=== PATIENT | male | born 1940 | race African-American/Black ===

== ENCOUNTER 2019-07-24 12:30 | Inpatient (IN) | payer OTHER ==
[~2019-07-24] VITALS: Ht 177.8 cm; Wt 79.4 kg
[~2019-07-24 12:30] MED LIST: ALPHAGAN P10 ML OP; FLOVENT HFA13 GM IH; HYDROCHLOROTHIAZIDE PO; LEVAQUIN500 MG PO; LISINOPRIL PO; MYSOLINE250 M1 PO; OMEPRAZOLE40 MG PO; PROAIR HFA8.5 G1; PROAIR HFA8.5 G1 IH; SYMBICORT 16010.2 GM INH; TYLENOL WITH C1 EACH PO; Z.0.FLOMAX0.4 MG PO; Z.0.LATANOPROST2.5 M OP; Z.0.LUMIGAN2.5 M1 OP; Z.2.DOXAZOSIN MESYLA PO; [UNRECOGNIZED DRUG - OTHER] OP
--- OUTSIDE RECORDS SUMMARY | 2019-07-24 12:34 | XMS REPORT ---
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 Allergies, Adverse Reactions, Alerts This patient has no known allergies or adverse reactions. Medications This patient has no known medications. Results Test Description Test Time Test Comments Text Results Atomic Results Result Comments CHEST 2 VIEWS 2019-06-09 16:32:00 [place] [address] Patient Name: RABIA GOMES MR #: [id number] : 1940 Age/Sex: 78/M Req #: [id number] Adm Physician: Ordered by: ANEESH LAGUERRE DO Report #: [id number] Location: ER Room/Bed: Procedure: [id number] DX/CHEST 2 VIEWS Exam Date: 06/09/19 Exam Time: 1545 REPORT STATUS: Signed EXAMINATION: CHEST 2 VIEWS INDICATION: Cough CO MPARISON: None FINDINGS: LINES/TUBES:Left chest pacer. LUNGS:The lungs are well-inflated. No focal consolidation or pulmonary edema. PLEURA:No pleural effusion or pneumothorax. MEDIASTINUM:The cardiomediastinal silhouette appears normal in size and shape. Atherosclerotic calcifications of the tortuous thoracic aorta. BONES/SOFT TISSUES:No acute osseous injury. ABDOMEN:No free air under the diaphragm. IMPRESSION: No focal pneumonia or pulmonary edema. Signed by: Lynn Bravo MD on 06/09/2019 4:33 PM Dictated By: LYNN BRAVO MD [id number] Transcribed By: ESTRADA on 06/09/19 1633 COPY TO: ANEESH LAGUERRE DO
[2019-07-24] MEDS ORDERED: SODIUM CHLORIDE 0.9% 1000ML 1,000 ML IV SCH (12:42)
[2019-07-24] MEDS ORDERED: IPRATROPIUM BROMIDE 0.02% 2.5 ML NEB NEB STA (12:42)
[2019-07-24] MEDS ORDERED: ALBUTEROL SULF 0.083% NEB SOLN 3 ML NEB NEB STA (12:42)
[2019-07-24] MEDS ORDERED: SODIUM CHLORIDE FLUSH 10 ML SYR INJ PRN (12:45)
[2019-07-24] MEDS ORDERED: ONDANSETRON HCL INJ 2MG/ML 2ML 2 MG/ML VIAL IV PRN (12:45)
[2019-07-24 12:57] LABS: BASOPHILS # (AUTO) 0.1 (0.0-0.1); BASOPHILS % 0.7 % (0.0-1.0); EOSINOPHILS # (AUTO) 0.6 (0.0-0.4); EOSINOPHILS % 5.3 % (0.0-6.0); HEMATOCRIT 50.3 % (38.2-49.6); HEMOGLOBIN 15.7 g/dL (14.0-18.0); LYMPHOCYTES # (AUTO) 2.3 (1.0-3.2); LYMPHOCYTES % 21.4 % (18.0-39.1); MEAN CORPUSCULAR HEMOGLOBIN 28.7 pg (28-32); MEAN CORPUSCULAR HGB CONC 31.2 g/dL (31-35); MONOCYTES # (AUTO) 0.9 (0.2-0.8); MONOCYTES % 8.8 % (4.4-11.3); NEUTROPHILS # (AUTO) 6.8 (2.1-6.9); NEUTROPHILS % 63.4 % (38.7-80.0); PLATELET COUNT 245 x10e3/uL (140-360); RED BLOOD COUNT 5.47 x10e6/uL (4.3-5.7); RED CELL DISTRIBUTION WIDTH 14.1 % (11.7-14.4)
[2019-07-24] MEDS ORDERED: LEVOFLOXACIN 750MG/D5W 150ML 150 ML IV ONE (13:00)
[2019-07-24] MEDS ORDERED: FAMOTIDINE 20 MG/2 ML VIAL IV ONE (13:00)
--- NOTE | 2019-07-24 13:05 | NUR ---
R.T. AT BEDSIDE ADMINISTERING BREATHING TX
[2019-07-24 13:24] LABS: ALANINE AMINOTRANSFERASE 28 IU/L (0-55); ALBUMIN 3.7 g/dL (3.5-5.0); ALBUMIN/GLOBULIN RATIO 1.1 (0.8-2.0); ALKALINE PHOSPHATASE 71 IU/L (40-150); ANION GAP 14.6 mmol/L (8-16); BLOOD UREA NITROGEN 17 mg/dL (7-26); BUN/CREATININE RATIO 15 (6-25); CALCIUM 9.6 mg/dL (8.4-10.2); CARBON DIOXIDE 28 mmol/L (22-29); CHLORIDE 98 mmol/L (98-107); CREATINE KINASE 133 IU/L (30-200); CREATININE, SERUM 1.17 mg/dL (0.72-1.25); EST GLOMERULAR FILTRATION RATE > 60 ML/MIN (60-); GLUCOSE 158 mg/dL (74-118); POTASSIUM 4.6 mmol/L (3.5-5.1); SODIUM 136 mmol/L (136-145)
--- NOTE | 2019-07-24 13:24 | Diagnostic Imaging Report ---
EXAMINATION: CHEST SINGLE (PORTABLE) INDICATION: Shortness of breath. COMPARISON: 06/09/2019. FINDINGS: LINES/TUBES:Dual-lead left-sided cardiac pacemaker again observed. LUNGS:The lungs are well-inflated. Mild prominence of the pulmonary vasculature with redistribution may reflect mild congestion. No focal consolidation or pulmonary edema. PLEURA:No pleural effusion or pneumothorax. MEDIASTINUM:The cardiomediastinal silhouette appears normal in size and shape. Atherosclerotic calcifications of the tortuous thoracic aorta. BONES/SOFT TISSUES:No acute osseous injury. ABDOMEN:No free air under the diaphragm. IMPRESSION: Mild central pulmonary venous congestion. Signed by: Dr. Estevan Watson M.D. on 07/24/2019 1:22 PM
[2019-07-24 13:29] LABS: ABG PCO2 55 mmHg (41-51); ABG PH 7.31 (7.31-7.41); ABG PO2 84 mmHg (80-105)
[2019-07-24 13:30] LABS: ABG HCO3 28 mmol/L (23-28)
[2019-07-24] MEDS ORDERED: METHYLPREDNISOLONE SOD SUCC 125 MG/2ML VIAL IV ONE (13:30)
[2019-07-24] MEDS ORDERED: CEFTRIAXONE SOD 1 GM VIAL IV SCH (14:15)
[2019-07-24] MEDS: ALBUTEROL/IPRATROPIUM 3 ML NEB NEB SCH ×3 (14:57→23:50)
[2019-07-24] MEDS ORDERED: ALBUTEROL SULFATE HFA 8GM INHALATION AEROSOL INH PRN (15:00)
[2019-07-24] MEDS ORDERED: ZOLPIDEM TARTRATE 5 MG TAB PO PRN (15:15)
[2019-07-24] MEDS: CEFTRIAXONE SOD 1 GM/NS 50 ML 50 ML IV SCH (16:00)
[2019-07-24] MEDS: AZITHROMYCIN 500MG/NS 250 ML 250 ML IV SCH (16:36)
--- NOTE | 2019-07-24 19:15 | NUR ---
rec;d bedside report from luis manuel gonzalez
[2019-07-24] MEDS: BUDESONIDE/FORMOTEROL 160/4.5MCG INHALER INH SCH (20:30)
[2019-07-24] MEDS: METHYLPREDNISOLONE SOD SUCC 40 MG/ML VIAL 1ML IV SCH (21:16)
--- NOTE | 2019-07-24 21:53 | Consultation ---
DATE OF CONSULTATION: 07/24/2019 Pulmonary Critical Care consultation CHIEF COMPLAINT: Worsening dyspnea and cough. HISTORY OF PRESENT ILLNESS: The patient is a 78-year-old man. He has a history of COPD. He uses Symbicort twice a day at home as well as albuterol as needed. He has a history of a prior pacemaker for sinus bradycardia. Over the past several days, he has noticed worsening dyspnea and cough. His cough has been productive of greenish phlegm. He denies any fevers. He has not had chest pain. PAST SURGICAL HISTORY: Status post pacemaker placement. PAST MEDICAL HISTORY: 1. COPD. 2. Benign prostatic hypertrophy. 3. History of sick sinus node syndrome, requiring pacemaker placement. SOCIAL HISTORY: The patient quit smoking in 1999. He is not an active drinker. FAMILY HISTORY: Family history is noncontributory. ALLERGIES: THE PATIENT IS ALLERGIC TO SULFA. REVIEW OF SYSTEMS: The patient is afebrile. He has no headache. He has some mild nasal congestion. He is not having a sore throat. He has no neck pain. He does not complain of chest pain. He does have dyspnea and wheezing. He has cough productive of discolored phlegm. He has no abdominal pain. He has no nausea or vomiting. He has no leg edema. He has no focal neurological abnormalities. PHYSICAL EXAMINATION: VITAL SIGNS: The patient is afebrile. The blood pressure is 136/74 and the saturation is 100%. HEENT: Shows no facial swelling or erythema. LYMPHATIC: Shows no submandibular, cervical, or supraclavicular adenopathy. NECK: Shows no JVD or thyromegaly. There is no nuchal rigidity. CARDIAC: Reveals regular rate and rhythm with normal S1, S2. LUNGS: Auscultation of lungs reveals a prolonged expiratory phase bilaterally. There is mild wheezing. ABDOMEN: Soft, nontender. There is no rebound or guarding. EXTREMITIES: Show no leg edema or calf tenderness. There is no cyanosis or clubbing. Chest x-ray shows no active disease. LABORATORY DATA: CBC is within normal limits. Creatinine is mildly elevated at 1.17. The other electrolytes are within normal limits. IMPRESSION: 1. Chronic obstructive pulmonary disease with acute exacerbation. 2. History of prior pacemaker for bradycardia. PLAN: The patient will receive: 1. Solu-Medrol. 2. IV antibiotics. 3. Bronchodilators. 4. Repeat blood tests tomorrow. 5. Nasal swab for influenza. MD GABE Rivera/JEEVAN /[id number]
[2019-07-24] MEDS ORDERED: METHYLPREDNISOLONE SOD SUCC 40 MG/ML VIAL 1ML IV SCH (22:00)
--- NOTE | 2019-07-24 22:23 | NUR ---
CALL PLACED TO DR. AIDEN VIRAMONTES FOR THIS PATEINT
[2019-07-24] MEDS: BRIMONIDINE TARTRATE 0.15% OPTH DRPS 10ML BTL OP SCH (22:28)
[2019-07-24] MEDS: BIMATOPROST(OPTH) 2.5 ML BOTTLE OP SCH (22:29)
[2019-07-24] MEDS: DORZOLAMIDE HCL (OPTH) 10 ML BOTTLE OP SCH (22:29)
[2019-07-25] VITALS (10 sets, daily range): BP systolic 120–145; BP diastolic 59–91
--- NOTE | 2019-07-25 00:10 | NUR ---
patient came from ER awake alert oriented, no acute distress noted. able to move from wheel chair to bed without difficulty. SOB noted with exertions. vitals checked, will continue to monitor.
[2019-07-25] MEDS: ALBUTEROL/IPRATROPIUM 3 ML NEB NEB SCH ×6 (02:55→23:02)
[2019-07-25 06:08] LABS: BASOPHILS % 0.2 % (0.0-1.0); HEMATOCRIT 46.3 % (38.2-49.6); HEMOGLOBIN 14.5 g/dL (14.0-18.0); LYMPHOCYTES # (AUTO) 1.8 (1.0-3.2); LYMPHOCYTES % 19.9 % (18.0-39.1); MEAN CORPUSCULAR HEMOGLOBIN 28.8 pg (28-32); MEAN CORPUSCULAR HGB CONC 31.3 g/dL (31-35); MEAN CORPUSCULAR VOLUME 91.9 fL (81-99); MONOCYTES # (AUTO) 0.7 (0.2-0.8); MONOCYTES % 7.2 % (4.4-11.3); NEUTROPHILS # (AUTO) 6.5 (2.1-6.9); NEUTROPHILS % 72.1 % (38.7-80.0); PLATELET COUNT 242 x10e3/uL (140-360); RED BLOOD COUNT 5.04 x10e6/uL (4.3-5.7); RED CELL DISTRIBUTION WIDTH 14.1 % (11.7-14.4)
[2019-07-25 06:28] LABS: ANION GAP 13.2 mmol/L (8-16); BLOOD UREA NITROGEN 17 mg/dL (7-26); BUN/CREATININE RATIO 15 (6-25); CALCIUM 9.5 mg/dL (8.4-10.2); CARBON DIOXIDE 29 mmol/L (22-29); CHLORIDE 101 mmol/L (98-107); CREATININE, SERUM 1.13 mg/dL (0.72-1.25); EST GLOMERULAR FILTRATION RATE > 60 ML/MIN (60-); GLUCOSE 122 mg/dL (74-118); SODIUM 138 mmol/L (136-145)
[2019-07-25 06:40] LABS: POTASSIUM 5.2 mmol/L (3.5-5.1)
[2019-07-25 07:06] LABS: LYMPHOCYTES % (MANUAL) 18 % (19-48); MONOCYTES % (MANUAL) 5 % (3.4-9.0); NEUTROPHILS % (MANUAL) 77 % (40-74)
[2019-07-25 07:07] LABS: PLATELET ESTIMATE ADEQUATE; PLATELET MORPHOLOGY COMMENT NORMAL; RBC MORPHOLOGY COMMENT NORMAL
[2019-07-25] MEDS: PANTOPRAZOLE SOD 40 MG TABEC PO SCH (08:08)
[2019-07-25] MEDS: TAMSULOSIN HCL 0.4 MG CAP PO SCH (08:08)
[2019-07-25] MEDS: METHYLPREDNISOLONE SOD SUCC 40 MG/ML VIAL 1ML IV SCH ×3 (08:08→20:37)
[2019-07-25] MEDS: BIMATOPROST(OPTH) 2.5 ML BOTTLE OP SCH (08:16)
[2019-07-25] MEDS: BRIMONIDINE TARTRATE 0.15% OPTH DRPS 10ML BTL OP SCH (08:16)
[2019-07-25] MEDS: DORZOLAMIDE HCL (OPTH) 10 ML BOTTLE OP SCH (08:17)
[2019-07-25] MEDS: PRIMIDONE 250 MG TABLET PO SCH ×3 (09:00→16:08)
[2019-07-25] MEDS ORDERED: FUROSEMIDE INJ 10 MG/ML 4 ML VIAL IV ONE (10:15)
[2019-07-25] MEDS: BUDESONIDE/FORMOTEROL 160/4.5MCG INHALER INH SCH ×2 (11:33→19:33)
--- NOTE | 2019-07-25 12:54 | Diagnostic Imaging Report ---
EXAM: CT Chest WITHOUT intravenous contrast 07/25/2019 9:22 AM INDICATION: Shortness of breath COMPARISON: Chest radiograph 07/24/2019 TECHNIQUE: Chest was scanned utilizing a multidetector helical scanner from the lung apex through the level of the adrenal glands without administration of IV contrast. Coronal and sagittal reformations were obtained. Routine protocol was performed. IV CONTRAST: None RADIATION DOSE: Total DLP: 417.0 mGy*cm. Dose modulation, iterative reconstruction, and/or weight based adjustment of the mA/kV was utilized to reduce the radiation dose to as low as reasonably achievable. COMPLICATIONS: None FINDINGS: LINES/ TUBES: Left chest pacer. LUNGS AND AIRWAYS: The central airways are patent. Mild diffuse bronchial wall thickening. No focal consolidation or pulmonary edema. Mild bibasilar dependent subsegmental atelectasis. No suspicious pulmonary nodules. PLEURA: The pleural spaces are clear. HEART AND MEDIASTINUM: The thyroid gland is normal. No mediastinal, hilar or axillary lymphadenopathy. The heart is normal in size.. There is no pericardial effusion. Atherosclerotic calcifications involve the aorta, coronary arteries, and proximal great vessels. The main pulmonary artery is mildly enlarged, measuring up to 3.9 cm. UPPER ABDOMEN: No acute findings. BONES: The visualized bony thorax is within normal limits. SOFT TISSUES: Unremarkable. IMPRESSION: Hyperinflated lungs. No focal pneumonia or pulmonary edema. Mild diffuse body wall thickening can be seen in the setting of bronchitis. Old main pulmonary artery enlargement to 3.9 cm can be seen in the setting of pulmonary arterial hypertension. Signed by: Brock Bravo MD on 07/25/2019 12:51 PM
[2019-07-25] MEDS ORDERED: FUROSEMIDE INJ 10 MG/ML 4 ML VIAL ONE (13:17)
[2019-07-25] MEDS: CEFTRIAXONE SOD 1 GM/NS 50 ML 50 ML IV SCH (15:16)
[2019-07-25] MEDS ORDERED: SODIUM CHLORIDE 0.9% 250ML 250 ML ONE (15:43)
[2019-07-25] MEDS: AZITHROMYCIN 500MG/NS 250 ML 250 ML IV SCH (15:55)
--- NOTE | 2019-07-25 16:03 | History and Physical ---
The patient on observation. CHIEF COMPLAINT: Shortness of breath and chest pain. PRIMARY CARE PHYSICIAN: Dr. Prince Curtis. CONSULTANTS: 1. Dr. Carlos Sinclair. 2. Dr. Dandre Sinclair. HISTORY OF PRESENT ILLNESS: This is a 78-year-old male with permanent pacemaker in left chest area. Last pacemaker change was approximately 4 or 5 years ago, but he had a pacemaker for many years, came in with increasing shortness of breath and chest pain. The patient is otherwise stable. He was having some wheezing. He uses Symbicort and albuterol as needed. The patient is stable. He did have some greenish sputum. The patient has imaging tests done and chest x-ray shown mild central pulmonary venous congestion. The patient is otherwise stable. He just had an echocardiogram done. PAST MEDICAL HISTORY: COPD, hypertension, reflux history, and history of sick sinus syndrome, status post permanent pacemaker. SOCIAL HISTORY: The patient was a smoker, quit in 1999. He does not drink alcohol and currently no recreational drug use. He quit per the patient crack cocaine over 20 years ago. ALLERGIES: TO SULFA. HOME MEDICATIONS: List is reviewed. REVIEW OF SYSTEMS: Shows some shortness of breath and wheezing, but no significant chest pain or abdominal pain or any focal deficits. PHYSICAL EXAMINATION: VITAL SIGNS: Temperature is 98, blood pressure 144/82, pulse rate 77, and respirations 18. GENERAL: The patient is not in acute distress. He is awake. HEENT: Normocephalic and atraumatic. He is anicteric. NECK: Supple grossly. PULMONARY: Diminished breath sounds bilateral with rhonchi. CARDIOVASCULAR: S1 and S2. Regular rate and rhythm. Left upper chest, permanent pacemaker. EXTREMITIES: No cyanosis or edema. NEUROLOGIC: No gross focal deficit. LABORATORY DATA: Sodium is 138, potassium 5.2, chloride 101, bicarb 29, BUN 17, creatinine 1.2, and glucose is 122. WBC is 9.1, hemoglobin 14.5, hematocrit 46, and platelets is 242. IMPRESSION: 1. Acute exacerbation of chronic obstructive pulmonary disease. 2. History of sick sinus syndrome with permanent pacemaker. 3. Chest pain, atypical, most likely from chronic obstructive pulmonary disease. PLAN: CT chest without contrast. Echocardiogram. Resume home medication nebulizer treatment. Cut back on the steroids. Consultation with Dr. Dandre Sinclair for cardiac workup. The patient is otherwise stable at this time. MD EDNA Umaña/JEEVAN /[id number]
--- NOTE | 2019-07-25 18:43 | Progress Note ---
DATE: 07/25/2019 SUBJECTIVE: The patient reports continued dyspnea. He has minimal cough. He is not complaining of chest pain. PHYSICAL EXAMINATION: VITAL SIGNS: The patient is afebrile. The blood pressure is 120/60 and saturation is 97% on 3 L. HEENT: Shows no facial swelling or erythema. CARDIAC: Reveals regular rate and rhythm with normal S1 and S2. LUNGS: Auscultation of lungs reveals prolonged expiratory phase bilaterally. There is no wheezing. ABDOMEN: Soft and nontender. There is no rebound or guarding. EXTREMITIES: Shows no leg edema or calf tenderness. IMPRESSION: 1. Chronic obstructive pulmonary disease with acute exacerbation. 2. Atrial fibrillation. 3. Prior pacemaker placement. PLAN: 1. Continue Solu-Medrol. 2. Continue IV antibiotics. 3. Continue bronchodilators and oxygen. 4. Await completion of Cardiology evaluation. Carlos Sinclair MD [facility]/JEEVAN /[id number]
[2019-07-26] VITALS (11 sets, daily range): BP systolic 102–134; BP diastolic 69–84
[2019-07-26] MEDS: ALBUTEROL/IPRATROPIUM 3 ML NEB NEB SCH ×6 (00:15→19:50)
--- NOTE | 2019-07-26 00:40 | Consultation ---
DATE OF CONSULTATION: 07/25/2019 Cardiology Consult HISTORY OF PRESENT ILLNESS: Ishmael Olson is a 78-year-old male with a pacemaker in the left chest. Last pacemaker change was approximately five years ago that he had a pacemaker for many years, admitted complaining of shortness of breath and chest pain and accompanied with some wheezing. The patient has a primary history of COPD, hypertension, and history of sick sinus syndrome with a pacemaker placed. The patient also reports of having some greenish sputum, moderate amount. The patient also reports his chest pain is intermittently come and go for almost five years now, but he denies any dizziness or any dyspnea. PAST MEDICAL HISTORY: COPD, hypertension, GERD, and sick sinus syndrome. SOCIAL HISTORY: The patient is a quit smoking in 1999 and no alcohol or recreational drug use, but he had a history of cocaine use for over 20 years. ALLERGIES: SULFA. HOME MEDICATIONS: He takes: 1. Lisinopril/hydrochlorothiazide. 2. Fluticasone. 3. He takes budesonide. 4. Formoterol fumarate. 5. Albuterol. 6. Brimonidine tartrate. 7. Omeprazole. 8. Primidone. PHYSICAL EXAMINATION: VITALS SIGN: Right now 120/59 blood pressure, pulse is 77, temperature is 96.4, respiratory rate is 17, pulse ox is 97 on 3 L nasal cannula. GENERAL APPEARANCE: Well-developed, well-nourished, in no acute distress. HEENT: Head is normocephalic and atraumatic. Eyes, pupils equally round and reactive to light and accommodation. Sclerae nonicteric. Ears normal. Oral cavity; mucosa is moist. Throat is clear. NECK AND THYROID: Neck is supple. Full range of motion. No cervical lymphadenopathy. SKIN: Warm and dry. No suspicious lesions. HEART: Regular rate and rhythm, S1 and S2 normal. No murmurs. LUNGS: Diminished all throughout with some expiratory wheezing. ABDOMEN: Soft, nontender, nondistended. Bowel sounds are present. EXTREMITIES: No edema. No cyanosis. NEUROLOGIC: Nonfocal. Motor strength is normal in upper and lower extremities. Sensory exam is intact. RECOMMENDATION AND PLAN: The patient is a 78-year-old male with chronic obstructive pulmonary disease exacerbation with complaining of chest pain. Initial cardiac enzymes are negative of any ischemia. Telemetry, he is AV paced on the monitor. No signs. No evidence of ischemia. 1. We will do monitor on telemetry. 2. Echocardiogram. 3. Pacemaker interrogation or ICD interrogation. 4. Further recommendations will follow according to patient's clinical course. Thank you for this consultation. We will continue to follow. Dictated by Chelsea Galeana NP MD GIANNA Vegas/JEEVAN /[id number]
[2019-07-26 05:12] LABS: BASOPHILS % 0.3 % (0.0-1.0); HEMATOCRIT 44.6 % (38.2-49.6); HEMOGLOBIN 14.3 g/dL (14.0-18.0); LYMPHOCYTES # (AUTO) 2.3 (1.0-3.2); LYMPHOCYTES % 22.9 % (18.0-39.1); MEAN CORPUSCULAR HGB CONC 32.1 g/dL (31-35); MEAN CORPUSCULAR VOLUME 90.5 fL (81-99); MONOCYTES % 9.4 % (4.4-11.3); NEUTROPHILS # (AUTO) 6.8 (2.1-6.9); NEUTROPHILS % 67.1 % (38.7-80.0); PLATELET COUNT 238 x10e3/uL (140-360); RED BLOOD COUNT 4.93 x10e6/uL (4.3-5.7); RED CELL DISTRIBUTION WIDTH 13.9 % (11.7-14.4)
[2019-07-26 05:29] LABS: ANION GAP 11.6 mmol/L (8-16); BLOOD UREA NITROGEN 21 mg/dL (7-26); BUN/CREATININE RATIO 20 (6-25); CALCIUM 9.3 mg/dL (8.4-10.2); CARBON DIOXIDE 30 mmol/L (22-29); CHLORIDE 103 mmol/L (98-107); CREATININE, SERUM 1.03 mg/dL (0.72-1.25); EST GLOMERULAR FILTRATION RATE > 60 ML/MIN (60-); GLUCOSE 137 mg/dL (74-118); POTASSIUM 4.6 mmol/L (3.5-5.1); SODIUM 140 mmol/L (136-145)
[2019-07-26] MEDS: METHYLPREDNISOLONE SOD SUCC 40 MG/ML VIAL 1ML IV SCH ×3 (06:14→21:43)
[2019-07-26] MEDS: BUDESONIDE/FORMOTEROL 160/4.5MCG INHALER INH SCH ×2 (07:00→19:00)
[2019-07-26] MEDS: BIMATOPROST(OPTH) 2.5 ML BOTTLE OP SCH (08:38)
[2019-07-26] MEDS: PRIMIDONE 250 MG TABLET PO SCH ×2 (08:38→16:43)
[2019-07-26] MEDS: PANTOPRAZOLE SOD 40 MG TABEC PO SCH (08:38)
[2019-07-26] MEDS: TAMSULOSIN HCL 0.4 MG CAP PO SCH (08:38)
[2019-07-26] MEDS ORDERED: ONDANSETRON HCL 4 MG ORAL DISINTEGRATING TAB PO PRN (09:30)
--- NOTE | 2019-07-26 10:26 | Progress Note ---
DATE: 07/26/2019 SUBJECTIVE: The patient still has some wheezing and coughing. He received a breathing treatment with some improvement. PHYSICAL EXAMINATION: VITAL SIGNS: The patient is afebrile. The vital signs are stable. HEENT: Shows no facial swelling or erythema. CARDIAC: Reveals a regular rate and rhythm with normal S1 and S2. LUNGS: Auscultation of lungs reveals a prolonged expiratory phase bilaterally. There is no wheezing. ABDOMEN: Soft, nontender. There is no rebound or guarding. EXTREMITIES: Show no leg edema or calf tenderness. There is no cyanosis or clubbing. SKIN: Shows no rashes. NEUROLOGIC: Shows no focal abnormalities. IMPRESSION: 1. Chronic obstructive pulmonary disease with acute exacerbation. 2. Atrial fibrillation. 3. Prior pacemaker placement. PLAN: 1. Continue Solu-Medrol. 2. Continue bronchodilators. 3. Await completion of echocardiogram and Cardiology evaluation. 4. Wean oxygen as tolerated. Carlos Sinclair MD [facility]/JEEVAN /[id number]
[2019-07-26] MEDS: CEFTRIAXONE SOD 1 GM/NS 50 ML 50 ML IV SCH (14:39)
[2019-07-26] MEDS ORDERED: MAGNESIUM HYDROXIDE 30 ML UDC PO PRN (15:45)
[2019-07-26] MEDS ORDERED: BISACODYL 10 MG SUPP PR PRN (15:45)
[2019-07-26] MEDS ORDERED: SENNOSIDES 8.6 MG TAB PO PRN (15:45)
[2019-07-26] MEDS: AZITHROMYCIN 500MG/NS 250 ML 250 ML IV SCH (15:56)
[2019-07-26] MEDS: ENOXAPARIN SOD INJ 40 MG/0.4 ML SYR SC SCH (16:43)
--- NOTE | 2019-07-26 19:00 | NUR ---
Bed side report received, patient is stbale, on o2 3l, patient is alert and oriented x 4. safety and fall precautions maintained at this time.
[2019-07-27] VITALS (7 sets, daily range): BP systolic 115–154; BP diastolic 66–92
--- NOTE | 2019-07-27 | NUR ---
patient rounded and vitals checked, vitals stable, patient is sleeping at this time.Woke up and had 60 mls of urine output.
--- NOTE | 2019-07-27 02:53 | NUR ---
[employer] was called for patient. Patient was lethargic and non responsive to verbal command, however vitals were within normal range. [employer] arrived and work up was started, labs were collected, ekg was done and patient was placed on bipap. sepsis was ruled out, patient was stabilized on the bipap.
[2019-07-27] MEDS: ALBUTEROL/IPRATROPIUM 3 ML NEB NEB SCH ×6 (03:02→22:15)
[2019-07-27] MEDS ORDERED: MAGNESIUM SULFATE 2GM/50ML 50 ML IV ONE (03:04)
[2019-07-27] MEDS ORDERED: ALBUTEROL/IPRATROPIUM 3 ML NEB NEB ONE ×2 (03:15)
[2019-07-27] MEDS ORDERED: ALBUTEROL SULF 0.083% NEB SOLN 3 ML NEB ONE (03:20)
[2019-07-27 03:21] LABS: ABG PH 7.08 (7.31-7.41)
[2019-07-27 03:22] LABS: ABG HCO3 30 mmol/L (23-28); ABG PCO2 102 mmHg (41-51); ABG PO2 61 mmHg (80-105)
[2019-07-27 03:29] LABS: BASOPHILS % 0.2 % (0.0-1.0); HEMATOCRIT 50.4 % (38.2-49.6); HEMOGLOBIN 15.4 g/dL (14.0-18.0); LYMPHOCYTES # (AUTO) 4.9 (1.0-3.2); LYMPHOCYTES % 35.7 % (18.0-39.1); MEAN CORPUSCULAR HEMOGLOBIN 28.8 pg (28-32); MEAN CORPUSCULAR HGB CONC 30.6 g/dL (31-35); MONOCYTES # (AUTO) 0.8 (0.2-0.8); MONOCYTES % 5.4 % (4.4-11.3); NEUTROPHILS % 58.2 % (38.7-80.0); PLATELET COUNT 298 x10e3/uL (140-360); RED BLOOD COUNT 5.35 x10e6/uL (4.3-5.7); RED CELL DISTRIBUTION WIDTH 14.1 % (11.7-14.4)
[2019-07-27 03:47] LABS: ALANINE AMINOTRANSFERASE 54 IU/L (0-55); ALBUMIN 3.5 g/dL (3.5-5.0); ALKALINE PHOSPHATASE 61 IU/L (40-150); ANION GAP 13.1 mmol/L (8-16); BLOOD UREA NITROGEN 19 mg/dL (7-26); BUN/CREATININE RATIO 16 (6-25); CALCIUM 9.8 mg/dL (8.4-10.2); CARBON DIOXIDE 27 mmol/L (22-29); CHLORIDE 102 mmol/L (98-107); CREATINE KINASE 95 IU/L (30-200); CREATININE, SERUM 1.21 mg/dL (0.72-1.25); EST GLOMERULAR FILTRATION RATE > 60 ML/MIN (60-); GLUCOSE 198 mg/dL (74-118); POTASSIUM 5.1 mmol/L (3.5-5.1); SODIUM 137 mmol/L (136-145)
[2019-07-27 03:48] LABS: MEAN CORPUSCULAR VOLUME 94.2 fL (81-99)
--- NOTE | 2019-07-27 03:57 | Diagnostic Imaging Report ---
EXAMINATION: CHEST SINGLE (PORTABLE) COMPARISON: CT chest 07/25/2019 INDICATION: COPD, shortness of breath ^Neuro DISCUSSION: Frontal view of the chest obtained at 0320 hours. HEART AND MEDIASTINUM: The heart is normal in size. The aorta is mildly tortuous LINES: Dual-lead pacemaker wires terminate in the right atrium and right ventricle. LUNGS: Diffuse hyperinflation. No mass, infiltrate, or interstitial edema. PLEURA: No pleural effusion or pneumothorax. BONES AND SOFT TISSUES: No focal osseous lesion. The soft tissues are normal. IMPRESSION: Stable pulmonary hyperinflation consistent with history of COPD. No acute cardiopulmonary process. Signed by: Dr. Tang Cerna MD on 07/27/2019 3:55 AM
[2019-07-27] MEDS ORDERED: ALBUTEROL SULF 0.083% NEB SOLN 3 ML NEB NEB STA ×2 (04:21→04:50)
[2019-07-27 04:43] LABS: ABG HCO3 29 mmol/L (23-28); ABG PCO2 55 mmHg (41-51); ABG PH 7.33 (7.31-7.41); ABG PO2 103 mmHg (80-105)
[2019-07-27 04:57] LABS: BASOPHILS % 0.1 % (0.0-1.0); EOSINOPHILS % 0.1 % (0.0-6.0); HEMOGLOBIN 14.6 g/dL (14.0-18.0); LYMPHOCYTES # (AUTO) 1.2 (1.0-3.2); LYMPHOCYTES % 13.1 % (18.0-39.1); MEAN CORPUSCULAR HEMOGLOBIN 28.7 pg (28-32); MEAN CORPUSCULAR HGB CONC 31.1 g/dL (31-35); MEAN CORPUSCULAR VOLUME 92.5 fL (81-99); MONOCYTES # (AUTO) 0.6 (0.2-0.8); NEUTROPHILS # (AUTO) 7.5 (2.1-6.9); NEUTROPHILS % 80.4 % (38.7-80.0); PLATELET COUNT 240 x10e3/uL (140-360); RED BLOOD COUNT 5.08 x10e6/uL (4.3-5.7); RED CELL DISTRIBUTION WIDTH 13.9 % (11.7-14.4)
[2019-07-27 05:18] LABS: ALANINE AMINOTRANSFERASE 91 IU/L (0-55); ALBUMIN 3.3 g/dL (3.5-5.0); ALBUMIN/GLOBULIN RATIO 1.1 (0.8-2.0); ALKALINE PHOSPHATASE 71 IU/L (40-150); ANION GAP 11.8 mmol/L (8-16); BLOOD UREA NITROGEN 20 mg/dL (7-26); BUN/CREATININE RATIO 18 (6-25); CALCIUM 9.6 mg/dL (8.4-10.2); CARBON DIOXIDE 30 mmol/L (22-29); CHLORIDE 101 mmol/L (98-107); CREATINE KINASE 81 IU/L (30-200); CREATININE, SERUM 1.09 mg/dL (0.72-1.25); EST GLOMERULAR FILTRATION RATE > 60 ML/MIN (60-); GLUCOSE 169 mg/dL (74-118); POTASSIUM 4.8 mmol/L (3.5-5.1); SODIUM 138 mmol/L (136-145)
[2019-07-27] MEDS: METHYLPREDNISOLONE SOD SUCC 40 MG/ML VIAL 1ML IV SCH ×3 (05:51→18:41)
[2019-07-27 05:54] LABS: CLARITY,URINE CLEAR (CLEAR); COLOR,URINE YELLOW (YELLOW); LEUKOCYTE ESTERASE ,URINE NEGATIVE (NEGATIVE); NITRITE,URINE NEGATIVE (NEGATIVE); PROTEIN,URINE DIPSTICK TRACE (NEGATIVE)
[2019-07-27 05:55] LABS: BACTERIA,URINE RARE /HPF; BILIRUBIN,URINE NEGATIVE (NEGATIVE); EPITHELIAL CELLS,URINE FEW /LPF; KETONES,URINE NEGATIVE (NEGATIVE); URINE UROBILINOGEN 0.2 mg/dL (0.2 - 1)
[2019-07-27] MEDS: BUDESONIDE/FORMOTEROL 160/4.5MCG INHALER INH SCH (07:30)
[2019-07-27] MEDS: BIMATOPROST(OPTH) 2.5 ML BOTTLE OP SCH (08:01)
[2019-07-27] MEDS ORDERED: CITRATE OF MAGNESIA 300ML BOTTLE PO ONE (09:15)
--- NOTE | 2019-07-27 10:11 | Progress Note ---
DATE: 07/27/2019 Pulmonary Critical Care Progress Note SUBJECTIVE: The patient became more lethargic last night at 4:00 a.m. and a rapid response was called. The patient was given a breathing treatment and started on BiPAP. He is more awake this morning. He is not complaining of wheezing or difficulty breathing. He does complain of not having a bowel movement. PHYSICAL EXAMINATION: VITAL SIGNS: The patient is afebrile. The blood pressure is 116/81 and the saturation is 99%. CARDIAC: Reveals regular rate and rhythm with normal S1, S2. There are no murmurs or rubs. LUNGS: Auscultation of lungs reveals prolonged expiratory phase. There is no wheezing. ABDOMEN: Soft, nontender. There is no rebound or guarding. EXTREMITIES: Show no leg edema or calf tenderness. There is no cyanosis or clubbing. SKIN: Shows no rashes. NEUROLOGICAL: Shows no focal abnormalities. LABORATORY DATA: Blood gas is 7.33 with CO2 of 55, and O2 of 103 and a bicarbonate of 29. White blood cell count is 9.3 and hemoglobin is 14.6. The platelet count is 240. BUN to creatinine ratio is 20 to 1.09. RADIOGRAPHIC DATA: Chest x-ray shows no acute disease. There is COPD. IMPRESSION: 1. Gfzos-ez-akhdfxr respiratory failure. 2. Chronic obstructive pulmonary disease with acute exacerbation. 3. Atrial fibrillation. 4. Constipation. PLAN: 1. The patient should continue Solu-Medrol along with bronchodilators for now. 2. Arrange for noninvasive ventilator at home. 3. Continue current cardiac regimen. 4. Magnesium citrate for bowel movement. Carlos Sinclair MD [facility]/MODL /[id number]
[2019-07-27] MEDS: BUDESONIDE 0.25 MG/2 ML NEB NEB SCH ×2 (11:25→22:15)
[2019-07-27] MEDS: PRIMIDONE 250 MG TABLET PO SCH ×2 (12:47→18:41)
[2019-07-27] MEDS: ASPIRIN 81 MG CHEW TAB PO SCH (12:47)
[2019-07-27] MEDS: PANTOPRAZOLE SOD 40 MG TABEC PO SCH (12:47)
[2019-07-27] MEDS: TAMSULOSIN HCL 0.4 MG CAP PO SCH (12:47)
[2019-07-27] MEDS ORDERED: CITRATE OF MAGNESIA 300ML BOTTLE ONE (12:54)
[2019-07-27] MEDS: CEFTRIAXONE SOD 1 GM/NS 50 ML 50 ML IV SCH (18:41)
[2019-07-27] MEDS: ENOXAPARIN SOD INJ 40 MG/0.4 ML SYR SC SCH (18:41)
[2019-07-27] MEDS: AZITHROMYCIN 250 MG TAB PO SCH (18:41)
--- NOTE | 2019-07-27 19:20 | NUR ---
Received patient from day nurse, patient is alert and oriented, patient denies concerns at this time, safety and fall precautions maintained as per hospital protocol: bed in lowest position and locked, needed items beside bed and call blackburn placed close to patient. patient son at bed side.
--- NOTE | 2019-07-27 22:00 | NUR ---
patient rounded and stable.
[2019-07-28] VITALS (8 sets, daily range): BP systolic 116–154; BP diastolic 61–88
--- NOTE | 2019-07-28 | NUR ---
patient rounded and stable.
[2019-07-28] MEDS: METHYLPREDNISOLONE SOD SUCC 40 MG/ML VIAL 1ML IV SCH ×4 (02:38→17:11)
[2019-07-28] MEDS: ALBUTEROL/IPRATROPIUM 3 ML NEB NEB SCH ×6 (03:00→23:00)
[2019-07-28] MEDS: BUDESONIDE 0.25 MG/2 ML NEB NEB SCH ×2 (07:00→19:45)
--- NOTE | 2019-07-28 07:00 | NUR ---
Rcvd patient in report this am. Patient is awake in bed at this time. NO s/s of distress noted. O2 sats stable at this time. Patient on O2 at 2L NC.
--- NOTE | 2019-07-28 07:15 | NUR ---
Patient condition throughout the night was stable, patient endorsed to next shift for continuity of care.
[2019-07-28] MEDS: TAMSULOSIN HCL 0.4 MG CAP PO SCH (08:39)
[2019-07-28] MEDS: BIMATOPROST(OPTH) 2.5 ML BOTTLE OP SCH (08:39)
[2019-07-28] MEDS: PRIMIDONE 250 MG TABLET PO SCH ×2 (08:39→16:54)
[2019-07-28] MEDS: PANTOPRAZOLE SOD 40 MG TABEC PO SCH (08:39)
[2019-07-28] MEDS: ASPIRIN 81 MG CHEW TAB PO SCH (08:39)
--- NOTE | 2019-07-28 10:59 | Progress Note ---
DATE: 07/28/2019 SUBJECTIVE: The patient's Solu-Medrol was increased yesterday. He feels better now. He has less dyspnea. He is off BiPAP and on nasal cannula. OBJECTIVE: VITAL SIGNS: The patient is afebrile. The vital signs are stable. HEENT: Shows no facial swelling or erythema. CARDIAC: Reveals regular rate and rhythm with normal S1 and S2. LUNGS: Auscultation of lungs reveals a prolonged expiratory phase. There is some wheezing. ABDOMEN: Soft, nontender. There is no rebound or guarding. EXTREMITIES: Show no leg edema or calf tenderness. There is no cyanosis or clubbing. SKIN: Shows no rashes. NEUROLOGICAL: Shows no focal abnormalities. IMPRESSION: 1. Ibxdj-nn-jtlqnnu respiratory failure. 2. Chronic obstructive pulmonary disease with acute exacerbation. 3. Atrial fibrillation. 4. Constipation. PLAN: 1. Continue Solu-Medrol. 2. Continue oxygen. 3. Continue current cardiac regimen. Carlos Sinclair MD [facility]/MODL /[id number]
[2019-07-28] MEDS: CEFTRIAXONE SOD 1 GM/NS 50 ML 50 ML IV SCH (14:45)
--- NOTE | 2019-07-28 14:46 | NUR ---
Patient resting in bed with no s/s of distress noted. Patient has tolerated his oxygen at 2L NC. No shortness of breath noted. Family at bedside.
[2019-07-28] MEDS: AZITHROMYCIN 250 MG TAB PO SCH (16:54)
[2019-07-28] MEDS: ENOXAPARIN SOD INJ 40 MG/0.4 ML SYR SC SCH (16:54)
--- NOTE | 2019-07-28 20:00 | NUR ---
Report received. Assumed care. Assessment done. See interventions.
[2019-07-29] VITALS (7 sets, daily range): BP systolic 129–157; BP diastolic 77–90
[2019-07-29] MEDS: METHYLPREDNISOLONE SOD SUCC 40 MG/ML VIAL 1ML IV SCH ×4 (00:50→21:09)
[2019-07-29] MEDS: ALBUTEROL/IPRATROPIUM 3 ML NEB NEB SCH ×6 (03:00→23:05)
--- NOTE | 2019-07-29 05:00 | NUR ---
Weaned O2 off.
--- NOTE | 2019-07-29 06:27 | NUR ---
O2 on room air 95%. Alena well.
[2019-07-29] MEDS: BUDESONIDE 0.25 MG/2 ML NEB NEB SCH ×2 (07:18→19:55)
[2019-07-29] MEDS: PANTOPRAZOLE SOD 40 MG TABEC PO SCH (07:49)
[2019-07-29] MEDS: BIMATOPROST(OPTH) 2.5 ML BOTTLE OP SCH (07:57)
[2019-07-29] MEDS: ASPIRIN 81 MG CHEW TAB PO SCH (08:01)
[2019-07-29] MEDS: TAMSULOSIN HCL 0.4 MG CAP PO SCH (08:01)
[2019-07-29] MEDS: PRIMIDONE 250 MG TABLET PO SCH ×2 (08:01→16:10)
--- NOTE | 2019-07-29 09:43 | NUR ---
ORDERS FOR HOME HEALTH AND HOME 02 WILL NEED NEW SAT TESTING (LAST ONE DONE ON 07/26) AWAIT EVAL
--- NOTE | 2019-07-29 13:46 | NUR ---
HOME 02 EVAL DONE PT DOES NOT QUALIFY FOR OXYGEN
[2019-07-29] MEDS: CEFTRIAXONE SOD 1 GM/NS 50 ML 50 ML IV SCH (14:47)
[2019-07-29] MEDS: AZITHROMYCIN 250 MG TAB PO SCH (16:10)
[2019-07-29] MEDS: ENOXAPARIN SOD INJ 40 MG/0.4 ML SYR SC SCH (16:10)
--- NOTE | 2019-07-29 16:13 | NUR ---
SINGED CHOICE FOR [facility]IM HOME HEALTH AND FAXED TO COMPANY. FILED CHOICE IN CHART.
[2019-07-30] VITALS: BP 144/78
--- NOTE | 2019-07-30 00:17 | NUR ---
RECEIVED PATIENT VIA TRANSFER IN HOSPITAL BED. PATIENT TOLERATED TRANSFER WELL. A&OX4. NO PAIN REPORTED. NO DIFFICULTY BREATHING. LUNG SOUNDS CLEAR. BOWEL SOUNDS ACTIVE. L AC 20G AND R FA 18G BOTH ASYMPTOMATIC, INTACT, AND PATENT. NO S&S OF DISTRESS NOTED. BED LOCKED IN LOWEST POSITION, SIDE RAILS UPX2, CALL LIGHT IN REACH.
[2019-07-30 04:00] VITALS: BP 161/88
[2019-07-30] MEDS: ALBUTEROL/IPRATROPIUM 3 ML NEB NEB SCH ×2 (04:00→07:12)
[2019-07-30] MEDS: METHYLPREDNISOLONE SOD SUCC 40 MG/ML VIAL 1ML IV SCH (06:22)
--- NOTE | 2019-07-30 06:52 | NUR ---
RECEIVED BEDSIDE SHIFT REPORT FROM OFF GOING NURSE. PATIENT IS RESTING IN BED, NO ACUTE DISTRESS NOTED. CALL LIGHT WITHIN REACH. BED IN THE LOWEST POSITION.
[2019-07-30] MEDS: BUDESONIDE 0.25 MG/2 ML NEB NEB SCH (07:12)
[2019-07-30 08:10] VITALS: BP 157/92
[2019-07-30] MEDS ORDERED: TRIAMCINOLONE ACET 40 MG/ML VIAL IM ONE (08:15)
[2019-07-30] MEDS: PANTOPRAZOLE SOD 40 MG TABEC PO SCH (08:35)
[2019-07-30] MEDS: BIMATOPROST(OPTH) 2.5 ML BOTTLE OP SCH (08:35)
[2019-07-30] MEDS: ASPIRIN 81 MG CHEW TAB PO SCH (08:35)
[2019-07-30] MEDS: PRIMIDONE 250 MG TABLET PO SCH (08:35)
[2019-07-30] MEDS: TAMSULOSIN HCL 0.4 MG CAP PO SCH (08:35)
[2019-07-30 09:15] VITALS: BP 157/92
--- NOTE | 2019-07-30 09:16 | Discharge Summary ---
PRIMARY CARE PHYSICIAN: Dr. Prince Curtis. CONSULTANTS: 1. Dr. Dandre Sinclair. 2. Dr. Carlos Sinclair. FINAL DIAGNOSES: 1. Acute exacerbation of chronic obstructive pulmonary disease. 2. Acute bronchitis. 3. Acute hypoxia, resolved. SUMMARY: A 78 years male, ex-smoker, came in with acute exacerbation of COPD. The patient was hypoxic. At one time, the patient required BiPAP. He is doing much better now. He is stable, breathing well without oxygen. The patient is ambulatory. The wheezing has resolved. The patient's cough has also improved. The patient is stable, discharged home today. DISCHARGE INSTRUCTIONS: Discharged home with the following instructions: 1. The patient will get Kenalog IM 60 mg x1. 2. Resume home medications. 3. Medrol Dosepak and doxycycline monohydrate for 14 days. Mucinex 600 mg b.i.d. for 10 days. Tessalon Perles 100 mg q.6 p.r.n. for cough. The patient is otherwise stable. Discharged home. Follow up as an outpatient with Dr. Curtis within a week. MD EDNA Umaña/OMARL /[id number]
--- NOTE | 2019-07-30 10:00 | NUR ---
Received discharge order from MD. Patient is in stable condition. IV lines to right wrist and left antecubital discontinued with tip intact, pressure applied to site, no bleeding noted. Discharge teaching provided to patient, he verbalized understanding. Discharge folder with paperwork and prescriptions on hand. Patient accompanied to private auto via wheelchair by staff.
== END 2019-07-30 10:00 | disposition home or self-care (01) | DRG 190 ==
LOC: ER 12:30 → ERHOLD 14:13 → IMCU 23:53 → OBSVTOIN 07-26 08:58 → MED/SURG 07-30 00:06
PROVIDERS: ADMIT Internal Medicine; ATTEND Internal Medicine
PROC: 5A09357 Assistance with Respiratory Ventilation, Less than 24 Consecutive Hours, Continuous Positive Airway Pressure (ICD-10-PCS; principal; 2019-07-27)
DX: J44.0 Chronic obstructive pulmonary disease with (acute) lower respiratory infection (principal); J96.21 Acute and chronic respiratory failure with hypoxia; J44.1 Chronic obstructive pulmonary disease with (acute) exacerbation; I48.91 Unspecified atrial fibrillation; Z88.2 Allergy status to sulfonamides; I10 Essential (primary) hypertension; H54.8 Legal blindness, as defined in USA; N40.0 Benign prostatic hyperplasia without lower urinary tract symptoms; Z87.891 Personal history of nicotine dependence; Z82.49 Family history of ischemic heart disease and other diseases of the circulatory system; Z95.0 Presence of cardiac pacemaker; K59.00 Constipation, unspecified; J20.9 Acute bronchitis, unspecified; R09.02 Hypoxemia; I49.5 Sick sinus syndrome
CPT/HCPCS: 36415; 36600; 71045; 71250; 80048; 80053; 81001; 82550; 82553; 82805; 82948; 83605; 83880; 84484; 85025; 87040; 87400; 92950; 93005; 93306; 94640; 94660; 94664; 99284; G0378; J0456; J0696; J1650; J1940; J2920; J2930; J3301; J3475; J7030; J7050

== ENCOUNTER → 2020-06-21 | Outpatient (CLI) | payer OTHER | LOC: US 09:36 | PROVIDERS: ATTEND Urology | DX: R31.0 Gross hematuria (principal) | CPT/HCPCS: 74018; 76770 ==

== ENCOUNTER → 2020-07-16 | Outpatient (CLI) | payer OTHER ==
[~2020-07-16] MED LIST changes: +IOPAMIDOL 370 MG/ML 200 ML INFUS..BTL INJ ONE; +SODIUM CHLORIDE 0.9% 250ML 250 ML ONE
[2020-07-16 10:20] LABS: BLOOD UREA NITROGEN 13 mg/dL (7-26); BUN/CREATININE RATIO 12 (6-25); CREATININE, SERUM 1.06 mg/dL (0.72-1.25); EST GLOMERULAR FILTRATION RATE > 60 ML/MIN (60-)
== END ==
LOC: CT 09:44
PROVIDERS: ATTEND Urology
DX: R31.0 Gross hematuria (principal)
CPT/HCPCS: 36415; 74178; 82565; 84520; J7050; Q9967